=== PATIENT | male | born 1965 | race Caucasian/White ===

== ENCOUNTER → 2019-12-21 09:13 | Outpatient (BNVA) | payer OTHER, SELFPAY | PROVIDERS: PCP Internal Medicine; Referring Provider Internal Medicine; Visit Provider Internal Medicine Endocrinology, Diabetes & Metabolism | DX: Z76.89 Persons encountering health services in other specified circumstances (principal) ==

== ENCOUNTER → 2020-08-10 12:48 | Outpatient (BNVA) | payer OTHER, SELFPAY | PROVIDERS: PCP Internal Medicine; Visit Provider Internal Medicine Endocrinology, Diabetes & Metabolism | DX: E11.65 Type 2 diabetes mellitus with hyperglycemia (principal); E11.21 Type 2 diabetes mellitus with diabetic nephropathy; E55.9 Vitamin D deficiency, unspecified; E78.5 Hyperlipidemia, unspecified; Z79.4 Long term (current) use of insulin | CPT/HCPCS: 82947; 99212 ==

== ENCOUNTER 2020-11-10 09:11 | Outpatient (REF) | payer OTHER, SELFPAY ==
[2020-11-10 10:38] LABS: Alanine Aminotransferase 37 U/L (0-40); Albumin Level 4.7 g/dL (3.5-5.0); Alkaline Phosphatase 80 U/L (39-117); Anion Gap 17 (12-20); Aspartate Amino Transferase 31 U/L (5-37); Bilirubin Total 0.8 mg/dL (0.0-1.0); Blood Urea Nitrogen 18 mg/dL (9-16); Calcium 10.6 mg/dL (8.4-10.2); Carbon Dioxide 25 mmol/L (22-29); Chloride 100 mmol/L (96-108); Cholesterol 147 mg/dL; Estimated Glomerular Filt Rate > 60; Glucose Random 124 mg/dL (60-115); HDL Cholesterol 56 mg/dL; LDL Cholesterol Calculated 78 mg/dl; Potassium 4.9 mmol/L (3.3-5.1); Sodium 137 mmol/L (135-145); Total Protein 8.1 g/dL (6.5-8.0); Triglycerides 68 mg/dL
[2020-11-10 11:05] LABS: Creatinine Urine 75.74 mg/dL; Microalbum/Creatinine Ratio Ur 17.1 ug/mg cr
[2020-11-12 04:56] LABS: LDL Cholesterol Direct 78 mg/dL (<100)
== END 2020-11-10 09:12 | disposition home or self-care (01) ==
LOC: HO.10HDL 09:11
PROVIDERS: Visit Provider Internal Medicine Endocrinology, Diabetes & Metabolism
DX: E11.9 Type 2 diabetes mellitus without complications (principal)
CPT/HCPCS: 36415; 80053; 80061; 82043; 83721

== ENCOUNTER → 2020-11-24 13:13 | Outpatient (BNVA) | payer OTHER, SELFPAY | PROVIDERS: PCP Internal Medicine; Visit Provider Nurse Practitioner Gerontology | DX: E11.65 Type 2 diabetes mellitus with hyperglycemia (principal); E11.21 Type 2 diabetes mellitus with diabetic nephropathy; E78.5 Hyperlipidemia, unspecified; E55.9 Vitamin D deficiency, unspecified; Z79.4 Long term (current) use of insulin | CPT/HCPCS: 82947; 83036; 99212 ==

== ENCOUNTER → 2021-05-18 10:48 | Outpatient (BNVA) | payer OTHER, SELFPAY | PROVIDERS: PCP Internal Medicine; Visit Provider Nurse Practitioner Gerontology | DX: E11.65 Type 2 diabetes mellitus with hyperglycemia (principal); E11.21 Type 2 diabetes mellitus with diabetic nephropathy; E55.9 Vitamin D deficiency, unspecified; E78.5 Hyperlipidemia, unspecified; Z79.4 Long term (current) use of insulin | CPT/HCPCS: 82947; 83036; 99212 ==

== ENCOUNTER 2021-10-06 07:51 | Outpatient (REF) | payer OTHER, SELFPAY ==
[2021-10-06 08:42] LABS: Alanine Aminotransferase 26 U/L (0-40); Albumin Level 4.4 g/dL (3.5-5.0); Alkaline Phosphatase 70 U/L (39-117); Anion Gap 14 (12-20); Aspartate Amino Transferase 19 U/L (5-37); Bilirubin Total 0.6 mg/dL (0.0-1.0); Blood Urea Nitrogen 15 mg/dL (9-16); Calcium 9.5 mg/dL (8.4-10.2); Carbon Dioxide 26 mmol/L (22-29); Chloride 104 mmol/L (96-108); Cholesterol 142 mg/dL; Estimated Glomerular Filt Rate > 60; Glucose Random 149 mg/dL (60-115); HDL Cholesterol 56 mg/dL; LDL Cholesterol Calculated 71 mg/dl; Potassium 4.4 mmol/L (3.3-5.1); Sodium 140 mmol/L (135-145); Total Protein 7.5 g/dL (6.5-8.0); Triglycerides 76 mg/dL
[2021-10-06 08:53] LABS: Creatinine Urine 83.61 mg/dL; Microalbum/Creatinine Ratio Ur 16.7 ug/mg cr
[2021-10-06 09:05] LABS: Vitamin D 25-OH Total 51.7 ng/mL (>30)
== END 2021-10-06 07:52 | disposition home or self-care (01) ==
LOC: HO.LAB 07:51
PROVIDERS: PCP Internal Medicine; Visit Provider Internal Medicine
DX: Z00.00 Encounter for general adult medical examination without abnormal findings (principal); E78.5 Hyperlipidemia, unspecified; E11.9 Type 2 diabetes mellitus without complications; E55.9 Vitamin D deficiency, unspecified
CPT/HCPCS: 36415; 80053; 80061; 82043; 82306

== ENCOUNTER 2022-10-02 09:58 | Outpatient (AMB) | payer OTHER, SELFPAY ==
--- NOTE | 2022-10-02 10:07 | MHC.PC.OV ---
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 Accompanied by: Self / Same As Patient Allergies No Known Allergies Allergy (Verified 10/02/22 10:26) Medication List - Last Reconciled 10/02/22 by Leny Mauro MD acetaminophen 500 mg PO Q6H PRN 30 days BD Ligia 2nd Gen Pen Needle (pen needle, diabetic) 1 time a day NS blood sugar diagnostic As directed blood sugar diagnostic (OneTouch Verio test strips) As directed twice a day, fasting am and at bedtime blood-glucose meter (OneTouch Verio Meter) As directed twice aday cholecalciferol (vitamin D3) 25 mcg PO DAILY 90 days empagliflozin (Jardiance) 25 mg PO DAILY 90 days lancets (OneTouch Delica Lancets) 4 times a day lancets (OneTouch Delica Lancets) As directed twice a day Lantus Solostar U-100 Insulin (insulin glargine) 25 units (0.25 mL) subcut BEDTIME 30 days NS lisinopril 2.5 mg PO DAILY 90 days pravastatin 20 mg PO BEDTIME 90 days sitagliptin phos-metformin 50-1,000 mg ER (Janumet XR) 2 tabs PO DAILY 90 days Tobacco use date assessed: 10/02/22 Dental Screening Dental Screen Date: 10/02/22 Did you have a dental visit in the last 12 months?: Yes Did you have a dental problem in the last 6 months where you did not have access to dental care?: No Was dental information given to patient?: Patient has dentist HPI HPI Comments History of Present Illness Details This is a 57-year-old male with diabetes mellitus type 2 on long-term current use of insulin that comes for his physical exam. A1c goal is 7% and now A1cs elevated and I will increase Lantus. Last colonoscopy was 2019 and was normal. No chest pain or shortness of breath. Labs were ordered. LDL goal should be less than 70. Blood pressure within goal being less than 130/80. 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 Lumbar pain Vitamin D deficiency Surgical History Hx of colonoscopy Family History Father Hypertension Diabetes Mother Diabetes Social History Housing: House Alcohol intake: current Alcohol intake frequency: holidays/special occasions only Alcohol type: beer Patient Tobacco Use Status: Never used Tobacco e-Cigarette/Vaping Use: Never Used Second Hand Smoke Exposure: No service: No Current occupational status: employed Current occupational exposures/hazards: No Cognitive needs: No Hearing needs: No Vision needs: Yes Questionnaire PHQ-9 Over the last 2 weeks, how often have you been bothered by any of the following problems? 1. Little interest or pleasure in doing things: not at all 2. Feeling down, depressed, or hopeless: not at all 3. Trouble falling or staying asleep, or sleeping too much: not at all 4. Feeling tired or having little energy: not at all 5. Poor appetite or overeating: not at all 6. Feeling bad about yourself - or that you are a failure or have let yourself or your family down: not at all 7. Trouble concentrating on things, such as reading the newspaper or watching television: not at all 8. Moving or speaking so slowly that other people could have noticed. Or the opposite - being so fidgety or restless that you have been moving around a lot more than usual: not at all 9. Thoughts that you would be better off or of hurting yourself in some way: not at all Total score: 0 Depression Screening Interpretation: Negative 46823 - PHQ-9 Billing: Yes Source: Developed by Drs. Timmy Gregorio, Hailey Lemus, Mike Sebastian and colleagues, with an educational sylwia from [employer]. Thrive Questionnaire Date Thrive assessed: 10/02/22 I am a: Patient What is your living situation today?: I have a steady place to live Within the past 12 months, did the food you bought not last and you didn't have the money to get more?: Never true Within the past 12 months, did you worry whether your food would run out before you got money to buy more?: Never true Do you have trouble paying for medicines?: No Do you have trouble getting transportation to medical appointments?: No Do you have trouble paying your heating and electricity bill?: No Do you have trouble taking care of your child, family member or friend?: No Do you have trouble with day-to-day activities such as bathing, preparing meals, shopping, managing finances, etc.?: No Are you currently unemployed and looking for a job?: No Are you interested in more education?: No Please select the resources that you would like help with: None Currently or been in a relationship where the following occur: no concerns reported AUDIT C Alcohol Use Questionnaire (AUDIT-C) 1. How often do you have a drink containing alcohol?: Never Total Score: 0 Score Reviewed/Action Taken: No VALENTINA-7 AMB Questionnaire VALENTINA-7 Date VALENTINA - 7 assessed: 10/02/22 Feeling nervous, anxious, or on edge: 0 = Not at all Not being able to stop or control worryin = Not at all Worrying too much about different things: 0 = Not at all Trouble relaxin = Not at all Being so restless that it is hard to sit still: 0 = Not at all Becoming easily annoyed or irritable: 0 = Not at all Feeling afraid as if something awful might happen: 0 = Not at all Total VALENTINA-7 score (0-4 normal; 5-9 mild; 10-14 moderate; 15-21 severe): 0 Source: Developed by Drs. Timmy Gregorio, Hailey Lemus, Mike Sebastian and colleagues, with an educational sylwia from [employer]. VALENTINA-7 Assessment Billing VALENTINA-7 Assessment Tool: VALENTINA-7 Assessment 82745 Review of Systems Const All systems reviewed & are unremarkable except as noted in HPI and below Eyes Reports no additional complaints, Denies change in vision and Denies other visual disturbances Card Denies chest pain at rest, Denies chest pain with activity, Denies edema, Denies irregular heart rhythm, Denies claudication, Denies dyspnea, Denies dyspnea on exertion, Denies orthopnea, Denies paroxysmal nocturnal dyspnea and Denies slow heart rate Resp Denies cough, Denies dyspnea and Denies dyspnea on exertion GI Denies abdominal pain, Denies change in bowel habits, Denies excessive flatus, Denies nausea and Denies vomiting Denies urinary hesitancy, Denies urinary incontinence and Denies urinary urgency Musc Denies abnormal gait, Denies atrophy, Denies deformity and Denies limited range of motion Skin/Breast Denies bleeding lesions, Denies changing lesions and Denies rash Neuro Denies abnormal gait and Denies lack of coordination Physical exam (Primary Care) Vital Signs: Last Vital Signs BP 110/82 10/02/22 10:09 BMI result Body Mass Index 22.5 Tobacco/Smoking Status: Tobacco use Status Tobacco use date assessed 10/02/22 10/02/22 10:11 Patient Tobacco Use Status Never used Tobacco 10/02/22 10:11 e-Cigarette/Vaping Use Never Used 10/02/22 10:11 PHQ-9: PHQ-9 Score PHQ-9: Total score 0 10/02/22 10:11 Depression Screening Interpretation: Negative Thrive Assessment: Date of Thrive Assessment Date Thrive assessed 10/02/22 10/02/22 10:11 Currently or been in a relationship where the following occur: no concerns reported Const Orientation/consciousness: patient oriented x3 [facility] Head: Yes normal to inspection, Yes normocephalic and Yes atraumatic Ears: external ears normal Mouth: lip normal Eyes General: appearance normal, both eyes and all related structures Eyelids: Yes eyelids normal Conjunctivae: conjunctivae normal Neck Neck: Yes normal visual inspection and Yes supple Resp Effort & Inspection: normal respiratory effort Auscultation: clear to auscultation bilaterally Cardio Jugular venous distension: no JVD Rate: regular rate Rhythm: regular rhythm Heart sounds: S1 normal heart sound present and S2 normal heart sound present GI Inspection: Yes normal to inspection Palpation (GI): Soft to palpation and nontender Auscultation: normal bowel sounds Skin General skin exam: no rashes or lesions noted Neuro General: patient oriented x3 and no focal motor deficits Extrem General: Yes full ROM Psych Appearance: grossly normal Results AMB Hemoglobin A1c AMB Hemoglobin A1c 10.3 % Last Edit by AGUILAR Troy on 10/02/22 10:22 Results Reviewed Results Reviewed: Laboratory Last Values Hgb A1c (Clinic) 10.3 % (4.0-6.0) H 10/02/22 10:20 Assessment and Plan Assessment & Plan (1) Physical exam: Code(s): Z00.00 - Encounter for general adult medical examination without abnormal findings Plan: Repeat in a year. (2) Diabetes type 2, uncontrolled: Code(s): E11.65 - Type 2 diabetes mellitus with hyperglycemia Qualifiers: Glycemic state: with hyperglycemia Qualified Code(s): E11.65 - Type 2 diabetes mellitus with hyperglycemia Plan: Increase Lantus from 25 units to 28 units once a day. A1c goal is equal or less than 7%. Orders: Orders Comprehensive [place]. Panel Fast Today E11.9 - Type 2 diabetes mellitus without complications Lipid Panel Today E78.5 - Hyperlipidemia, unspecified Vitamin D 25-OH Total Today E55.9 - Vitamin D deficiency, unspecified Microalbumin, Random (w Creat) Today E11.9 - Type 2 diabetes mellitus without complications AMB Hemoglobin A1c Today E11.9 - Type 2 diabetes mellitus without complications Medications: Changed From Lantus Solostar U-100 Insulin (insulin glargine) 25 units (0.25 mL) subcut BEDTIME 30 days 7.5 mL 8RF NS E11.65 - Type 2 diabetes mellitus with hyperglycemia To Lantus Solostar U-100 Insulin (insulin glargine) 28 units (0.28 mL) subcut BEDTIME 30 days 8.4 mL 8RF NS E11.65 - Type 2 diabetes mellitus with hyperglycemia Coding Level of Care Code Est Pt Prev Care 40-64y(03211) Diagnoses Physical exam Z00.00 Diabetes type 2, uncontrolled E11.65 Glycemic state: with hyperglycemia Additional Codes VALENTINA-7 Assessment Billing - VALENTINA-7 Assessment Tool: VALENTINA-7 Assessment 29974 ([id number]) Time Spent (min) 33
[2022-10-02 10:09] VITALS: BP 110/82; BMI 22.5
== END 2022-10-02 10:38 | disposition home or self-care (01) ==
PROVIDERS: Visit Provider Internal Medicine
DX: Z00.00 Encounter for general adult medical examination without abnormal findings (principal); E11.65 Type 2 diabetes mellitus with hyperglycemia; E11.9 Type 2 diabetes mellitus without complications
CPT/HCPCS: 83036; 99396

== ENCOUNTER 2024-07-08 09:49 | Outpatient (AMB) | payer OTHER, SELFPAY ==
--- NOTE | 2024-07-08 10:04 | MHC.PC.OV ---
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: No Accompanied by: Self / Same As Patient Allergies No Known Allergies Allergy (Verified 07/08/24 10:28) Medication List - Last Reconciled 07/08/24 by Leny Mauro MD BD Ligia 2nd Gen Pen Needle (pen needle, diabetic) 1 time a day NS blood sugar diagnostic As directed blood sugar diagnostic (OneTouch Verio test strips) As directed twice a day, fasting am and at bedtime blood-glucose meter (OneTouch Verio Meter) As directed twice aday empagliflozin (Jardiance) 25 mg PO DAILY 90 days lancets (OneTouch Delica Lancets) 4 times a day lancets (OneTouch Delica Lancets) As directed twice a day Lantus Solostar U-100 Insulin (insulin glargine) 28 units (0.28 mL) subcut BEDTIME 30 days NS lisinopril 2.5 mg PO DAILY 90 days pravastatin 20 mg PO BEDTIME 90 days sitagliptin phos-metformin 50-1,000 mg ER (Janumet XR) 2 tabs PO DAILY 90 days Tobacco use date assessed: 07/08/24 Dental Screening Dental Screen Date: 07/08/24 Did you have a dental visit in the last 12 months?: Yes Did you have a dental problem in the last 6 months where you did not have access to dental care?: No Was dental information given to patient?: Patient has dentist HPI HPI Comments History of Present Illness Details The patient is a 59-year-old male presenting with uncontrolled diabetes mellitus. His A1c is significantly elevated at 14%, indicating poor control. He is currently on a diabetes management regimen that includes Jardiance 25 mg, Janumet two tablets daily, and Lantus 28 units. The patient also has a history of hypertension managed with Lisinopril 2.5 mg and hyperlipidemia treated with Pravastatin 20 mg. He reported no medication allergies and has recently undergone an eye examination. The current visit focused on reevaluating his diabetes management and enhancing home glucose monitoring practices. Also has history of low vitamin-D on supplements. [facility] Medical History Lumbar pain Essential hypertension Hypovitaminosis D Diabetes mellitus type 2 in nonobese Diabetes type 2, uncontrolled Diabetic nephropathy associated with type 2 diabetes mellitus Dyslipidemia half-way (current) use of insulin Vitamin D deficiency Diabetes type 2, controlled Surgical History Hx of colonoscopy Family History Father Hypertension Diabetes Mother Diabetes Social History Housing: House Alcohol intake: current Alcohol intake frequency: holidays/special occasions only Alcohol type: beer Patient Tobacco Use Status: Never used Tobacco e-Cigarette/Vaping Use: Never Used Second Hand Smoke Exposure: No service: No Current occupational status: employed Current occupational exposures/hazards: No Cognitive needs: No Hearing needs: No Vision needs: Yes Questionnaire PHQ-9 Over the last 2 weeks, how often have you been bothered by any of the following problems? 1. Little interest or pleasure in doing things: several days 2. Feeling down, depressed, or hopeless: not at all 3. Trouble falling or staying asleep, or sleeping too much: not at all 4. Feeling tired or having little energy: not at all 5. Poor appetite or overeating: not at all 6. Feeling bad about yourself - or that you are a failure or have let yourself or your family down: not at all 7. Trouble concentrating on things, such as reading the newspaper or watching television: not at all 8. Moving or speaking so slowly that other people could have noticed. Or the opposite - being so fidgety or restless that you have been moving around a lot more than usual: not at all 9. Thoughts that you would be better off or of hurting yourself in some way: not at all Total score: 1 Depression Screening Interpretation: Negative Depression Screening Done: Yes 74062 - PHQ-9 Billing: Yes Source: Developed by Drs. Timmy Gregorio, Hailey Lemus, Mike Sebastian and colleagues, with an educational sylwia from [email or web address]. Thrive Questionnaire Date Thrive assessed: 07/08/24 I am a: Patient What is your living situation today?: I have a steady place to live Within the past 12 months, did the food you bought not last and you didn't have the money to get more?: I choose not to answer this question Within the past 12 months, did you worry whether your food would run out before you got money to buy more?: Never true Do you have trouble paying for medicines?: No Do you have trouble getting transportation to medical appointments?: No Do you have trouble paying your heating and electricity bill?: No Do you have trouble taking care of your child, family member or friend?: No Do you have trouble with day-to-day activities such as bathing, preparing meals, shopping, managing finances, etc.?: No Are you currently unemployed and looking for a job?: No Are you interested in more education?: No Please select the resources that you would like help with: None Currently or been in a relationship where the following occur: No concerns reported THRIVE Score: 0 AUDIT C Alcohol Use Questionnaire (AUDIT-C) 1. How often do you have a drink containing alcohol?: Monthly or less 2. How many drinks containing alcohol do you have on a typical day when you are drinking?: 1 or 2 3. How often do you have six or more drinks on one occasion?: Never Total Score: 1 VALENTINA-7 AMB Questionnaire VALENTINA-7 Date VALENTINA - 7 assessed: 07/08/24 Feeling nervous, anxious, or on edge: 0 = Not at all Not being able to stop or control worryin = Not at all Worrying too much about different things: 0 = Not at all Trouble relaxin = Not at all Being so restless that it is hard to sit still: 0 = Not at all Becoming easily annoyed or irritable: 0 = Not at all Feeling afraid as if something awful might happen: 0 = Not at all Total VALENTINA-7 score (0-4 normal; 5-9 mild; 10-14 moderate; 15-21 severe): 0 Source: Developed by Drs. Timmy Gregorio, Hailey Lemus, Mike Sebastian and colleagues, with an educational sylwia from [email or web address]. VALENTINA-7 Assessment Billing VALENTINA-7 Assessment Tool: VALENTINA-7 Assessment 11320 Review of Systems Const All systems reviewed & are unremarkable except as noted in HPI and below Card Denies chest pain at rest, Denies chest pain with activity, Denies edema, Denies irregular heart rhythm, Denies claudication, Denies dyspnea, Denies dyspnea on exertion, Denies orthopnea, Denies paroxysmal nocturnal dyspnea and Denies slow heart rate Resp Denies cough, Denies dyspnea and Denies dyspnea on exertion GI Denies abdominal pain, Denies change in bowel habits, Denies excessive flatus, Denies nausea and Denies vomiting Denies urinary hesitancy, Denies urinary incontinence and Denies urinary urgency Physical exam (Primary Care) Vital Signs: Last Vital Signs BP 112/80 07/08/24 10:05 BMI result Body Mass Index 20.7 Tobacco/Smoking Status: Tobacco use Status Tobacco use date assessed 07/08/24 07/08/24 10:12 Patient Tobacco Use Status Never used Tobacco 07/08/24 10:05 e-Cigarette/Vaping Use Never Used 07/08/24 10:05 PHQ-9: PHQ-9 Score PHQ-9: Total score 1 07/08/24 10:29 Depression Screening Interpretation: Negative Thrive Assessment: Date of Thrive Assessment Date Thrive assessed 07/08/24 07/08/24 10:05 Currently or been in a relationship where the following occur: No concerns reported Resp Effort & Inspection: normal respiratory effort Auscultation: clear to auscultation bilaterally Cardio Jugular venous distension: no JVD Rate: regular rate Rhythm: regular rhythm Heart sounds: S1 normal heart sound present and S2 normal heart sound present Extrem General: Yes full ROM Results AMB Hemoglobin A1c AMB Hemoglobin A1c 14.0 % Last Edit by AGUILAR Troy on 07/08/24 10:18 Results Reviewed Results Reviewed: Laboratory Last Values Hgb A1c (Clinic) 14.0 % (4.0-6.0) H 07/08/24 10:04 Coding Level of Care Code Est Pt Level 4 (75366) Complex EM visit Add On G2211 Diagnoses Uncontrolled type 2 diabetes mellitus with hyperglycemia E11.65 Glycemic state: with hyperglycemia Essential hypertension I10 Dyslipidemia E78.5 Vitamin D deficiency E55.9 Additional Codes VALENTINA-7 Assessment Billing - VALENTINA-7 Assessment Tool: VALENTINA-7 Assessment 39242 ([id number]) PHQ-9 - 34193 - PHQ-9 Billing: Yes ([id number]) Time Spent (min) 23 Assessment & Plan Assessment & Plan (1) Diabetes type 2, uncontrolled: Code(s): E11.65 - Type 2 diabetes mellitus with hyperglycemia Category: Medical Qualifiers: Glycemic state: with hyperglycemia Qualified Code(s): E11.65 - Type 2 diabetes mellitus with hyperglycemia (2) Essential hypertension: Code(s): I10 - Essential (primary) hypertension Category: Medical (3) Dyslipidemia: Code(s): E78.5 - Hyperlipidemia, unspecified Category: Medical (4) Vitamin D deficiency: Code(s): E55.9 - Vitamin D deficiency, unspecified Category: Medical Plan The visit focused on addressing the patient's uncontrolled Type 2 Diabetes Mellitus, with an A1c of 14%. The patient will continue his current regimen of Jardiance, Janumet, and Lantus, with enhanced home glucose monitoring using a glucometer and test strips. Lisinopril and Pravastatin will be continued for hypertension and hyperlipidemia, respectively. Emphasis was placed on medication adherence, and follow-up is planned to reassess his condition and adjust treatment as needed. Recent eye examination results will be considered in ongoing management. Patient was informed and verbally consented to the use of an ambient scribe for clinic note documentation during this visit. During the visit, I reviewed the implications of the patient's uncontrolled diabetes, with an A1c of 14%, and discussed the current management plan. We agreed to continue the current medications, including Jardiance, Janumet, and Lantus, while enhancing home glucose monitoring with a glucometer and test strips. I clarified that adherence to the medication regimen is crucial for improving glycemic control. The patient was informed of the risks associated with poor glucose control, including potential complications such as retinopathy, neuropathy, and nephropathy. We discussed the use of Lisinopril for hypertension and Pravastatin for hyperlipidemia management. I recommended follow-up visits to reassess and modify the treatment plan as needed. The patient recently had an eye examination, which will be considered in ongoing diabetes management. Orders: Orders AMB Hemoglobin A1c Today E11.65 - Type 2 diabetes mellitus with hyperglycemia Lipid Panel Today E78.5 - Hyperlipidemia, unspecified Microalbumin, Random (w Creat) Today R80.9 - Proteinuria, unspecified Comprehensive [place]. Panel Fast Today E11.65 - Type 2 diabetes mellitus with hyperglycemia Medications: New pen needle, diabetic (1st Tier Unifine Pentips) Use 1 pen needle once a day 50 ea 6RF E11.65 - Type 2 diabetes mellitus with hyperglycemia Changed From blood-glucose meter (OneTouch Verio Meter) As directed twice aday 1 ea 0RF E11.65 - Type 2 diabetes mellitus with hyperglycemia To blood-glucose meter As directed twice aday 1 ea 0RF E11.65 - Type 2 diabetes mellitus with hyperglycemia From lancets (OneTouch Delica Lancets) As directed twice a day 100 ea 6RF E11.65 - Type 2 diabetes mellitus with hyperglycemia, E11.9 - Type 2 diabetes mellitus without complications To lancets As directed twice a day 100 ea 6RF E11.65 - Type 2 diabetes mellitus with hyperglycemia, E11.9 - Type 2 diabetes mellitus without complications Refilled empagliflozin (Jardiance) 25 mg PO DAILY 90 tabs 1RF 90 days E11.9 - Type 2 diabetes mellitus without complications Lantus Solostar U-100 Insulin (insulin glargine) 28 units (0.28 mL) subcut BEDTIME 8.4 mL 8RF 30 days NS E11.65 - Type 2 diabetes mellitus with hyperglycemia sitagliptin phos-metformin 50-1,000 mg ER (Janumet XR) 2 tabs PO DAILY 180 tabs 0RF 90 days E11.9 - Type 2 diabetes mellitus without complications blood sugar diagnostic (OneTouch Verio test strips) As directed twice a day, fasting am and at bedtime 50 ea 11RF E11.65 - Type 2 diabetes mellitus with hyperglycemia, E11.9 - Type 2 diabetes mellitus without complications lisinopril 2.5 mg PO DAILY 90 tabs 1RF 90 days E11.9 - Type 2 diabetes mellitus without complications pravastatin 20 mg PO BEDTIME 90 tabs 1RF 90 days E11.9 - Type 2 diabetes mellitus without complications Discontinued BD Ligia 2nd Gen Pen Needle (pen needle, diabetic) Discontinued Reason: Patient Completed Course 1 time a day 100 ea 4RF NS E11.65 - Type 2 diabetes mellitus with hyperglycemia Patient Instructions: - Continue taking Jardiance, Janumet, and Lantus as prescribed. - Use the glucometer and test strips to check blood sugar levels regularly. - Take Lisinopril and Pravastatin as directed for blood pressure and cholesterol. - Follow up with me in a few months to check on your blood sugar levels. - Let me know if you experience any new symptoms or have concerns about your medications.
[2024-07-08 10:05] VITALS: BP 112/80; BMI 20.7
== END 2024-07-08 10:36 | disposition home or self-care (01) ==
LOC: HO.HMCH 09:50
PROVIDERS: PCP Internal Medicine; Visit Provider Internal Medicine
DX: E11.65 Type 2 diabetes mellitus with hyperglycemia (principal); I10 Essential (primary) hypertension; E78.5 Hyperlipidemia, unspecified; E55.9 Vitamin D deficiency, unspecified

== ENCOUNTER → 2024-07-08 09:49 | Outpatient (BNVA) | payer OTHER, SELFPAY | PROVIDERS: PCP Internal Medicine; Visit Provider Internal Medicine | DX: E11.65 Type 2 diabetes mellitus with hyperglycemia (principal); I10 Essential (primary) hypertension; E78.5 Hyperlipidemia, unspecified; E55.9 Vitamin D deficiency, unspecified; Z79.4 Long term (current) use of insulin; Z79.899 Other long term (current) drug therapy | CPT/HCPCS: 83036; 96127; 99212 ==

== ENCOUNTER 2024-11-02 12:25 | Outpatient (REF) | payer OTHER, SELFPAY ==
--- NOTE | ~2024-11-02 | XR_ITS ---
EXAMINATION: XR FEMUR, LEFT CLINICAL INFORMATION: S76.319A - Strain of muscle, fascia and tendon of the posterior muscle g... COMPARISON: None TECHNIQUE: AP and lateral views of the left femur were obtained. FINDINGS: Marginal osteophytes are present along the acetabular roof. The left hip joint is otherwise unremarkable. The left knee joint is grossly normal. No femoral abnormality is identified. There are large patellar enthesophytes. XR/XR femur LT 2V IMPRESSION: Unremarkable left femur. There are large patellar enthesophytes of uncertain significance. There are osteophytes involving the acetabular roof in the left hip. Electronically signed by: Corby Hines MD 11/02/2024 01:55 PM EDT
== END 2024-11-02 12:26 | disposition home or self-care (01) ==
LOC: HO.XRAY 12:25
PROVIDERS: PCP Internal Medicine; Visit Provider Internal Medicine
DX: S76.319A Strain of muscle, fascia and tendon of the posterior muscle group at thigh level, unspecified thigh, initial encounter (principal); Z79.4 Long term (current) use of insulin; Z79.84 Long term (current) use of oral hypoglycemic drugs; Z79.899 Other long term (current) drug therapy
CPT/HCPCS: 73552

== ENCOUNTER 2024-11-02 12:25 | Outpatient (AMB) | payer OTHER, SELFPAY ==
--- NOTE | 2024-11-02 12:35 | MHC.PC.OV ---
Vital Signs 11/02/24 12:37 Height 6 ft Weight 151 lb 8 oz BMI 20.5 BP 142/66 H Blood Pressure Location Rt brachial Position Sitting Pulse 109 H Pulse Source Pulse Oximeter Temp 97.3 F Temp Source Temporal Artery Scan Pulse Oximetry (%) 95 Oxygen Delivery Method Room Air Intake Visit Reasons: sciatica pain Intake Note: Patient is here to follow up on Sciatica pain. Senior Database Programmer Required: No Outside Machinist Supervisor: Not Required per policy Accompanied by: Self / Same As Patient Allergies No Known Allergies Allergy (Verified 11/02/24 12:37) Medication List - Last Reconciled 11/02/24 by Beau Sen MD blood sugar diagnostic As directed blood sugar diagnostic (LiquiGlideTouch Verio test strips) As directed twice a day, fasting am and at bedtime blood-glucose meter As directed twice aday empagliflozin (Jardiance) 25 mg PO DAILY 90 days lancets (OneTouch Delica Lancets) 4 times a day lancets As directed twice a day Lantus Solostar U-100 Insulin (insulin glargine) 28 units (0.28 mL) subcut BEDTIME 30 days NS lisinopril 2.5 mg PO DAILY 90 days metformin ER 1,000 mg (2 x 500 mg) PO BID 90 days pen needle, diabetic (1st Tier Unifine Pentips) Use 1 pen needle once a day pravastatin 20 mg PO BEDTIME 90 days Tobacco use date assessed: 11/02/24 Dental Screening Dental Screen Date: 07/08/24 HPI HPI Comments History of Present Illness Details The patient is a 59-year-old male presenting with posterior left thigh pain. The pain began two to three weeks ago without any specific injury or event. The pain is described as starting from the back and radiating upwards and to his leg. He has not taken any medication for the pain and reports fever and chills, especially at night. [facility] Medical History Lumbar pain Essential hypertension Hypovitaminosis D Diabetes mellitus type 2 in nonobese Diabetes type 2, uncontrolled Diabetic nephropathy associated with type 2 diabetes mellitus Dyslipidemia detention (current) use of insulin Vitamin D deficiency Diabetes type 2, controlled Surgical History Hx of colonoscopy Family History Father Hypertension Diabetes Mother Diabetes Social History Housing: House Alcohol intake: current Alcohol intake frequency: holidays/special occasions only Alcohol type: beer Patient Tobacco Use Status: Never used Tobacco e-Cigarette/Vaping Use: Never Used Second Hand Smoke Exposure: No service: No Current occupational status: employed Current occupational exposures/hazards: No Cognitive needs: No Hearing needs: No Vision needs: Yes Questionnaire Thrive Questionnaire Date Thrive assessed: 07/08/24 I am a: Patient What is your living situation today?: I have a steady place to live Within the past 12 months, did the food you bought not last and you didn't have the money to get more?: I choose not to answer this question Within the past 12 months, did you worry whether your food would run out before you got money to buy more?: Never true Do you have trouble paying for medicines?: No Do you have trouble getting transportation to medical appointments?: No Do you have trouble paying your heating and electricity bill?: No Do you have trouble taking care of your child, family member or friend?: No Do you have trouble with day-to-day activities such as bathing, preparing meals, shopping, managing finances, etc.?: No Are you currently unemployed and looking for a job?: No Are you interested in more education?: No Please select the resources that you would like help with: None Currently or been in a relationship where the following occur: No concerns reported THRIVE Score: 0 VALENTINA-7 AMB Questionnaire VALENTINA-7 Date VALENTINA - 7 assessed: 07/08/24 Source: Developed by Drs. Timmy Gregorio, Hailey Lemus, Mike Sebastian and colleagues, with an educational sylwia from [employer]. Review of Systems Const Details: Positives besides what was mentioned in HPI are in BOLD Constitutional: No Weight Change, No Fever, No Chills, No Night Sweats, No Fatigue, No Malaise ENT/Mouth: No Hearing Changes, No Ear Pain, No Nasal Congestion, No Sinus Pain, No Hoarseness, No sore throat, No Rhinorrhea, No Swallowing Difficulty Eyes: No Eye Pain, No Swelling, No Redness, No Foreign Body, No Discharge, No Vision Changes Cardiovascular: No Chest Pain, No SOB, No PND, No Dyspnea on Exertion, No Orthopnea, No Claudication, No Edema, No Palpitations Respiratory: No Cough, No Sputum, No Wheezing, No Smoke Exposure, No Dyspnea Gastrointestinal: No Nausea, No Vomiting, No Diarrhea, No Constipation, No Pain, No Heartburn, No Anorexia, No Dysphagia, No Hematochezia, No Melena, No Flatulence, No Jaundice Genitourinary: No Dysmenorrhea, No DUB, No Dyspareunia, No Dysuria, No Urinary Frequency, No Hematuria, No Urinary Incontinence, No Urgency, No Flank Pain, No Urinary Flow Changes, No Hesitancy Musculoskeletal: No Arthralgias, No Myalgias, No Joint Swelling, No Joint Stiffness, No Back Pain, No Neck Pain, No Injury History Skin: No Skin Lesions, No Pruritis, No Hair Changes, No Breast/Skin Changes, No Nipple Discharge Neuro: No Weakness, No Numbness, No Paresthesias, No Loss of Consciousness, No Syncope, No Dizziness, No Headache, No Coordination Changes, No Recent Falls Psych: No Anxiety/Panic, No Depression, No Insomnia, No Personality Changes, No Delusions, No Rumination, No SI/HI/AH/VH, No Social Issues, No Memory Changes, No Violence/Abuse Hx., No Eating Concerns Heme/Lymph: No Bruising, No Bleeding, No Transfusions History, No Lymphadenopathy Endocrine: No Polyuria, No Polydipsia, No Temperature Intolerance Physical exam (Primary Care) Vital Signs: Last Vital Signs Temp 97.3 F 11/02/24 12:37 Pulse 109 H 11/02/24 12:37 BP 142/66 H 11/02/24 12:37 Pulse Ox 95 11/02/24 12:37 Oxygen Delivery Method Room Air 11/02/24 12:37 BMI result Body Mass Index 20.5 Tobacco/Smoking Status: Tobacco use Status Tobacco use date assessed 11/02/24 11/02/24 12:44 Patient Tobacco Use Status Never used Tobacco 11/02/24 12:35 e-Cigarette/Vaping Use Never Used 11/02/24 12:35 Thrive Assessment: Date of Thrive Assessment Date Thrive assessed 07/08/24 11/02/24 12:35 Currently or been in a relationship where the following occur: No concerns reported Const Other: Pertinent findings are in BOLD GENERAL APPEARANCE NAD, activity normal for age, well developed/ well nourished, no cyanosis, pallor, or diaphoresis. EYES lids/conjunctiva normal. EARS/NOSE/THROAT Mucous membranes moist, nares normal, lips/teeth normal uvula midline without oral pharyngeal erythema, exudate or swelling TMs normal bilaterally. No lymphangitis/lymphedema. HEAD/NECK normocephalic atraumatic, no facial trauma, neck is supple. RESPIRATORY respiratory effort normal, speaks in full sentences, no tripod position, no accessory muscle use. Lungs clear to auscultation without rhonchi, wheezes, rales CARDIAC Regular rate and rhythm, no edema. ABDOMINAL Soft, ND/NT. No evidence of fluid wave. No pulsatile masses on exam, rebound tenderness, Wheeler sign or pain over Mcburney's point. MUSCLES/EXTREMITIES No abnormal range of motion, no swelling. Left posterior thigh lump. SKIN Warm, pink and dry. No rashes, dermatoses, petechiae or lesions. NEUROLOGICAL Speech is clear and appropriate. Normal level of consciousness. Gait and coordination are normal. 5/5 strength in all extremities. PSYCH Normal mood and affect. Judgement/competence is appropriate Results AMB Hemoglobin A1c AMB Hemoglobin A1c 11.9 % Last Edit by AGUILAR Galaviz on 11/02/24 12:51 Results Reviewed Results Reviewed: Laboratory Last Values Hgb A1c (Clinic) 11.9 % (4.0-6.0) H 11/02/24 12:35 Coding Level of Care Code Est Pt Level 3 (66890) Diagnoses Hamstring muscle strain S76.319A Assessment & Plan Assessment & Plan (1) Hamstring muscle strain: Code(s): S76.319A - Strain of muscle, fascia and tendon of the posterior muscle group at thigh level, unspecified thigh, initial encounter Category: Medical Plan: Unsure about diagnosis. Most likely muscle strain. On PE there is a lump in the posterior thigh. CT femur and X ray of left thigh to rule out soft tssue tumor. Tylenol and Diclofenac gel. F-U with Dr. Leyva on 11/10. Plan I discussed with the patient the use of Tylenol for managing his back pain and the application of a topical treatment to the affected area as needed. 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 XR femur LT 2V Today S76.319A - Strain of muscle, fascia and tendon of the posterior muscle group at thigh level, unspecified thigh, initial encounter Medications: New acetaminophen (Tylenol Extra Strength) 500 mg PO Q6H PRN 30 tabs 2RF fever diclofenac sodium 1% (Voltaren Arthritis Pain) apply to single elbow, wrist or hand; for hand includes palm/fingers/back of hand 2 grams topical QID PRN 50 grams 1RF pain Discontinued sitagliptin phos-metformin 50-1,000 mg ER (Janumet XR) Discontinued Reason: Patient no longer taking 2 tabs PO DAILY 90 days 180 tabs 0RF E11.9 - Type 2 diabetes mellitus without complications
[2024-11-02 12:37] VITALS: BP 142/66; PULSE 109; TEMP 36.3; O2SAT 95; BMI 20.5
== END 2024-11-02 13:00 | disposition home or self-care (01) ==
LOC: HO.HMCH 12:26
PROVIDERS: PCP Internal Medicine; Visit Provider Internal Medicine
DX: E11.9 Type 2 diabetes mellitus without complications (principal); Z79.4 Long term (current) use of insulin; S76.319A Strain of muscle, fascia and tendon of the posterior muscle group at thigh level, unspecified thigh, initial encounter

== ENCOUNTER → 2024-11-02 13:14 | Outpatient (BNV) | payer OTHER, SELFPAY | PROVIDERS: PCP Internal Medicine; Visit Provider Radiology Diagnostic Radiology | DX: M79.605 Pain in left leg (principal) | CPT/HCPCS: 73552 ==

== ENCOUNTER 2024-11-10 10:20 | Outpatient (AMB) | payer OTHER, SELFPAY ==
--- NOTE | 2024-11-10 10:27 | A.OFFPC_ITS ---
Vital Signs 11/10/24 10:28 Height 6 ft Weight 148 lb 8 oz BMI 20.1 BP 116/70 Blood Pressure Location Lt brachial Position Sitting Respiration 18 Pulse 93 Pulse Source Pulse Oximeter Temp 97.1 F Temp Source Temporal Artery Scan Pulse Oximetry (%) 96 Oxygen Delivery Method Room Air Intake Visit Reasons: dm Bariatric Nurse Required: No Accompanied by: Self / Same As Patient Allergies No Known Allergies Allergy (Verified 11/10/24 10:54) Medication List - Last Reconciled 11/10/24 by Leny Mauro MD acetaminophen (Tylenol Extra Strength) 500 mg PO Q6H PRN blood sugar diagnostic As directed blood sugar diagnostic (OneTouch Verio test strips) As directed twice a day, fasting am and at bedtime blood-glucose meter As directed twice aday diclofenac sodium 1% (Voltaren Arthritis Pain) 2 grams topical QID PRN empagliflozin (Jardiance) 25 mg PO DAILY 90 days lancets (OneTouch Delica Lancets) 4 times a day lancets As directed twice a day Lantus Solostar U-100 Insulin (insulin glargine) 28 units (0.28 mL) subcut BEDTIME 30 days NS lisinopril 2.5 mg PO DAILY 90 days metformin ER 1,000 mg (2 x 500 mg) PO BID 90 days pen needle, diabetic (1st Tier Unifine Pentips) Use 1 pen needle once a day pravastatin 20 mg PO BEDTIME 90 days Tobacco use date assessed: 11/10/24 Dental Screening Dental Screen Date: 11/10/24 Did you have a dental visit in the last 12 months?: No Did you have a dental problem in the last 6 months where you did not have access to dental care?: No Was dental information given to patient?: No HPI HPI Comments History of Present Illness Details The patient is a 59-year-old male presenting with a follow-up for diabetes management and left hip pain that radiates to leg. The patient's diabetes mellitus has been poorly controlled, with the most recent hemoglobin A1c recorded at 11.9% on November 02, down from a previous level of 14%. The patient is currently on Jardiance 25 mg, Metformin 1000 mg twice daily, and Lantus 28 units. There is a concern about medication adherence as the patient has not completed recent laboratory tests, and home glucose readings are reportedly poor. The patient also has a history of hypertension, which is currently well- controlled with a blood pressure of 116/70 mmHg. The patient is on Lisinopril 2.5 mg and Pravastatin 20 mg for cholesterol management. The patient reports left hip pain, which was evaluated by Dr. Cosme Milligan on November 02, revealing osteoarthritis and cartilage involvement on imaging. The pain has persisted for about a month, and the patient denies any recent trauma or falls. The pain is primarily localized to the hip but occasionally radiates to the lower extremity. 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 Vitamin D deficiency Diabetes type 2, controlled Surgical History Hx of colonoscopy Family History Father Hypertension Diabetes Mother Diabetes Social History Housing: House Alcohol intake: current Alcohol intake frequency: holidays/special occasions only Alcohol type: beer Patient Tobacco Use Status: Never used Tobacco e-Cigarette/Vaping Use: Never Used Second Hand Smoke Exposure: No service: No Current occupational status: employed Current occupational exposures/hazards: No Cognitive needs: No Hearing needs: No Vision needs: Yes Questionnaire Thrive Questionnaire Date Thrive assessed: 07/08/24 I am a: Patient What is your living situation today?: I have a steady place to live Within the past 12 months, did the food you bought not last and you didn't have the money to get more?: I choose not to answer this question Within the past 12 months, did you worry whether your food would run out before you got money to buy more?: Never true Do you have trouble paying for medicines?: No Do you have trouble getting transportation to medical appointments?: No Do you have trouble paying your heating and electricity bill?: No Do you have trouble taking care of your child, family member or friend?: No Do you have trouble with day-to-day activities such as bathing, preparing meals, shopping, managing finances, etc.?: No Are you currently unemployed and looking for a job?: No Are you interested in more education?: No Please select the resources that you would like help with: None Currently or been in a relationship where the following occur: No concerns reported THRIVE Score: 0 VALENTINA-7 AMB Questionnaire VALENTINA-7 Date VALENTINA - 7 assessed: 07/08/24 Source: Developed by Drs. Timmy Gregorio, Hailey Lemus, Mike Sebastian and colleagues, with an educational sylwia from [employer]. Review of Systems Const All systems reviewed & are unremarkable except as noted in HPI and below Card Denies chest pain at rest, Denies chest pain with activity, Denies edema, Denies irregular heart rhythm, Denies claudication, Denies dyspnea, Denies dyspnea on exertion, Denies orthopnea, Denies paroxysmal nocturnal dyspnea and Denies slow heart rate Resp Denies cough, Denies dyspnea and Denies dyspnea on exertion Physical exam (Primary Care) Vital Signs: Last Vital Signs Temp 97.1 F 11/10/24 10:28 Pulse 93 11/10/24 10:28 Resp 18 11/10/24 10:28 BP 116/70 11/10/24 10:28 Pulse Ox 96 11/10/24 10:28 Oxygen Delivery Method Room Air 11/10/24 10:28 BMI result Body Mass Index 20.1 Tobacco/Smoking Status: Tobacco use Status Tobacco use date assessed 11/10/24 11/10/24 10:33 Patient Tobacco Use Status Never used Tobacco 11/10/24 10:33 e-Cigarette/Vaping Use Never Used 11/10/24 10:33 Thrive Assessment: Date of Thrive Assessment Date Thrive assessed 07/08/24 11/10/24 10:33 Currently or been in a relationship where the following occur: No concerns reported Resp Effort & Inspection: normal respiratory effort Auscultation: clear to auscultation bilaterally Cardio Jugular venous distension: no JVD Rate: regular rate Rhythm: regular rhythm Heart sounds: S1 normal heart sound present and S2 normal heart sound present Extrem General: Yes full ROM Coding Level of Care Code Est Pt Level 4 (48097) Complex EM visit Add On G2211 Diagnoses Essential hypertension I10 Dyslipidemia E78.5 Uncontrolled type 2 diabetes mellitus with hyperglycemia E11.65 Glycemic state: with hyperglycemia Lumbar pain M54.50 Left leg pain M79.605 Time Spent (min) 21 Assessment & Plan Assessment & Plan (1) Essential hypertension: Code(s): I10 - Essential (primary) hypertension Category: Medical (2) Dyslipidemia: Code(s): E78.5 - Hyperlipidemia, unspecified Category: Medical (3) Diabetes type 2, uncontrolled: Code(s): E11.65 - Type 2 diabetes mellitus with hyperglycemia Category: Medical Qualifiers: Glycemic state: with hyperglycemia Qualified Code(s): E11.65 - Type 2 diabetes mellitus with hyperglycemia (4) Lumbar pain: Code(s): M54.50 - Low back pain, unspecified Category: Medical (5) Left leg pain: Code(s): M79.605 - Pain in left leg Category: Medical Plan Plan Patient was informed and verbally consented to the use of an ambient scribe for clinic note documentation during this visit. 1. Diabetes Mellitus The patient's diabetes management plan includes continuing current medications: Jardiance 25 mg, Metformin 1000 mg twice daily, and Lantus 28 units. The patient is advised to complete pending laboratory tests to better assess glycemic control and potential renal function issues. Referral to a certified diabetes educator or children's court magistrate may be considered if glycemic control does not improve. 2. Hypertension The patient's hypertension is currently well-controlled with Lisinopril 2.5 mg. Continued monitoring of blood pressure is recommended to ensure it remains within target range. 3. Osteoarthritis Of The Left Hip The patient is advised to continue using Tylenol for pain management, as st ronger analgesics cannot be prescribed without recent laboratory results. An ultrasound of the left leg is planned to further evaluate the pain and rule out other conditions. Referral to pain management is suggested for additional therapeutic options. Orders: Orders Lipid Panel Today E78.5 - Hyperlipidemia, unspecified Complete Blood Count Auto Diff Today D64.9 - Anemia, unspecified Comprehensive [place]. Panel Fast Today E11.65 - Type 2 diabetes mellitus with hyperglycemia XR lumbar spine 2-3V Today M54.50 - Low back pain, unspecified US venous duplex LE LT Today M79.605 - Pain in left leg Microalbumin, Random (w Creat) Today R80.9 - Proteinuria, unspecified Vitamin B12 and Folate Today E53.8 - Deficiency of other specified B group vitamins Vitamin D 25-OH Total Today E55.9 - Vitamin D deficiency, unspecified Referrals Pain Management Referral M79.607 - Pain in left leg
[2024-11-10 10:28] VITALS: BP 116/70; PULSE 93; RESP 18; TEMP 36.2; O2SAT 96; BMI 20.1
== END 2024-11-10 11:08 | disposition home or self-care (01) ==
LOC: HO.HMCH 10:21
PROVIDERS: PCP Internal Medicine; Visit Provider Internal Medicine
DX: I10 Essential (primary) hypertension (principal); E78.5 Hyperlipidemia, unspecified; E11.65 Type 2 diabetes mellitus with hyperglycemia; M54.50 Low back pain, unspecified; M79.605 Pain in left leg

== ENCOUNTER 2024-11-10 10:20 | Outpatient (REF) | payer OTHER, SELFPAY ==
--- NOTE | ~2024-11-10 | XR_ITS ---
EXAMINATION: XR LUMBOSACRAL SPINE CLINICAL INFORMATION: M54.50 - Low back pain, unspecified COMPARISON: None available. TECHNIQUE: Three views of the lumbosacral spine. FINDINGS: There is a phlebolith in the right lower pelvis. Bowel gas pattern is unremarkable. There are 5 non-rib bearing lumbar segments. Vertebral body height is preserved. T12-L1: There is minimal disc space narrowing. L1-L2: There is minimal disc space narrowing. L2-L3: There is subtle retrolisthesis and mild disc space narrowing with anterior osteophytes. L3-L4: There is mild disc space narrowing with small anterior osteophytes. L4-L5: There is mild grade 1 retrolisthesis and small anterior osteophytes. L5-S1: There is mild disc space narrowing and small anterior osteophytes. XR/XR lumbar spine 2-3V IMPRESSION: Mild multilevel degenerative changes. Electronically signed by: Corby Hines MD 11/10/2024 12:11 PM EDT
== END 2024-11-10 10:21 | disposition home or self-care (01) ==
LOC: HO.XRAY 10:20
PROVIDERS: PCP Internal Medicine; Visit Provider Internal Medicine
DX: E11.65 Type 2 diabetes mellitus with hyperglycemia (principal); I10 Essential (primary) hypertension; E78.5 Hyperlipidemia, unspecified; M54.50 Low back pain, unspecified; M79.605 Pain in left leg; M16.12 Unilateral primary osteoarthritis, left hip
CPT/HCPCS: 72100; 99212

== ENCOUNTER → 2024-11-10 11:18 | Outpatient (BNV) | payer OTHER, SELFPAY | PROVIDERS: PCP Internal Medicine; Visit Provider Radiology Diagnostic Radiology | DX: M51.360 Other intervertebral disc degeneration, lumbar region with discogenic back pain only (principal); M25.78 Osteophyte, vertebrae | CPT/HCPCS: 72100 ==

== ENCOUNTER 2024-11-15 12:38 | Outpatient (REF) | payer OTHER, SELFPAY ==
--- NOTE | ~2024-11-15 | US_ITS ---
EXAMINATION: US TRIPLEX LOWER EXTREMITY, LEFT CLINICAL INFORMATION: Left leg pain, rule out DVT. COMPARISON: None available. TECHNIQUE: Color-flow triplex imaging with spectral analysis and compression Doppler were performed on the left lower extremity. FINDINGS: Respiratory variation, normal compression and augmented flow are noted throughout the left lower extremity. The visualized common femoral vein, superficial femoral vein, profunda femoral vein, popliteal vein and midcalf posterior tibial venous segments show no evidence of deep venous thrombosis. The peroneal veins were poorly visualized on today's exam. There is no Herring's cyst. US/US venous duplex LE LT IMPRESSION: No evidence of deep venous thrombosis involving the left lower extremity. Electronically signed by: Refugio Chacon MD 11/15/2024 01:27 PM EDT
== END 2024-11-15 12:39 | disposition home or self-care (01) ==
LOC: HO.US 12:38
PROVIDERS: PCP Internal Medicine; Visit Provider Internal Medicine
DX: M79.605 Pain in left leg (principal)
CPT/HCPCS: 93971

== ENCOUNTER → 2024-11-15 12:40 | Outpatient (BNV) | payer OTHER, SELFPAY | PROVIDERS: PCP Internal Medicine; Visit Provider Radiology Diagnostic Radiology | DX: M79.605 Pain in left leg (principal) | CPT/HCPCS: 93971 ==

== ENCOUNTER 2024-12-04 09:12 | Outpatient (REF) | payer OTHER, SELFPAY ==
--- NOTE | ~2024-12-04 | CT_ITS ---
CLINICAL HISTORY: S76.319A - Strain of muscle, fascia and tendon of the posterior muscle g... CT left thigh without contrast Comparison: None provided Findings: No acute fracture or dislocation. No focal bony abnormality. No radiopaque foreign body. Muscular injuries are not excludable on CT. Impression: No acute bony abnormality This document has been electronically signed by: Jorge Pinzon MD on 12/06/2024 20:25:57
== END 2024-12-04 09:13 | disposition home or self-care (01) ==
LOC: HO.CT 09:12
PROVIDERS: PCP Internal Medicine; Visit Provider Internal Medicine
DX: S76.312D Strain of muscle, fascia and tendon of the posterior muscle group at thigh level, left thigh, subsequent encounter (principal)
CPT/HCPCS: 73700

== ENCOUNTER → 2024-12-04 09:15 | Outpatient (BNV) | payer OTHER, SELFPAY | PROVIDERS: PCP Internal Medicine; Visit Provider Radiology Diagnostic Radiology | DX: S76.312D Strain of muscle, fascia and tendon of the posterior muscle group at thigh level, left thigh, subsequent encounter (principal) | CPT/HCPCS: 73700 ==

== ENCOUNTER 2024-12-07 10:13 | Outpatient (AMB) | payer OTHER, SELFPAY ==
--- NOTE | 2024-12-07 10:20 | A.OFFVIS_ITS ---
Vital Signs 12/07/24 10:22 Height 6 ft Weight 152 lb 8 oz BMI 20.7 BP 121/71 Blood Pressure Location Rt brachial Position Sitting Pulse 81 Pulse Source Pulse Oximeter Pulse Oximetry (%) 99 Oxygen Delivery Method Room Air Intake Visit Reasons: Pain In Left Leg Intake Note: Pain today 8/10 Allergies No Known Allergies Allergy (Verified 12/07/24 10:22) HPI Comments Details: The patient is a 59-year-old male presenting with acute left leg pain. The pain in the left posterior thigh and calf has been present for about one month, with a severity of 9 out of 10, and it affects his daily activities, mobility, and functioning. The pain is described as stabbing and pulsating, and it worsens at night. The patient has a history of back pain and type 2 diabetes mellitus, which is currently uncontrolled with most recent A1c of 11.9. He has not undergone physical therapy for his back or leg pain, and his diabetes management is crucial for further interventions. Recent imaging includes a femur x-ray that was unremarkable, but bone spurs were noted in the left hip and patella. A back x-ray showed mild multilevel degenerative changes, and a venous duplex of the left lower extremity was negative for deep vein thrombosis. - Onset: Pain in the left calf started one month ago. - Quality: Described as stabbing and pulsating. - Severity: Rated 9 out of 10. - Exacerbating factors: Pain worsens at night. - Impact: Affects daily activities, sleep, mobility, and functioning. - Affect: Pain impacts daily activities and functioning. - Analgesia: Current pain level is 9/10; tried Tylenol, diclofenac gel, and ibuprofen with little relief. - Activities of Daily Living: Pain affects sleep, mobility and daily functioning. 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 Vitamin D deficiency Diabetes type 2, controlled Surgical History Hx of colonoscopy Family History Father Hypertension Diabetes Mother Diabetes Social History Housing: House Alcohol intake: current Alcohol intake frequency: holidays/special occasions only Alcohol type: beer Patient Tobacco Use Status: Never used Tobacco e-Cigarette/Vaping Use: Never Used Second Hand Smoke Exposure: No service: No Current occupational status: employed Current occupational exposures/hazards: No Cognitive needs: No Hearing needs: No Vision needs: Yes Review of Systems Const Details: - Musculoskeletal: Reports left leg pain and back pain. Denies right leg pain. - Endocrine: Reports uncontrolled diabetes with A1c of 11.9. All systems reviewed & are unremarkable except as noted in HPI and below Physical Exam Vital Signs: Last Vital Signs Pulse 81 12/07/24 10:22 BP 121/71 12/07/24 10:22 Pulse Ox 99 12/07/24 10:22 Oxygen Delivery Method Room Air 12/07/24 10:22 BMI result Body Mass Index 20.7 General: Appears afebrile. Alert and oriented. Mood and affect appropriate. Follows and participates in conversation appropriately. Respiratory effort is unlabored. No cough. Able to transition from sit to stand unassisted. Ambulates with bilaterally normal heel strike and toe off. Mildly antalgic on th e left. General: Yes no CVA tenderness Back/Spine/Pelvis Other: Patient is able to walk and stand on heels and tip toes with no difficulties demonstrating good motor tone. No limping. Lumbar extension reproduces mild to moderate pain, flexion and bending reproduces mild pain. Demonstrates 5/5 strength of quadriceps bilaterally as well as flexion/dorsiflexion of bilateral feet against resistance. 2+ pedal pulses bilaterally. Straight leg rise with dorsiflexion negative bilaterally. +1 patellar and diminished achilles reflexes bilaterally. Facet loading test positive bilaterally. Norberto?s, and Gaenslen reproduce left lateral hip pain but not back pain. Stinchfield tests are negative bilaterally. Mild groin pain with I/E hip rotations bilaterally, left>right. Valsalva maneuver negative. Back: no CVA tenderness Cervical Spine: cervical ROM normal and No Cervical spine tenderness Thoracic/Lumbar Spine: thoracic and lumbar spine normal to inspection, No Thoracic/lumbar spine scar(s), Lasegue's sign negative, straight leg raise negative bilaterally, pain with thoraco-lumbar ROM, No thoracic spinal tenderness and No lumbar spinal tenderness Sacroiliac joints: bilaterally nontender Extrem General: Yes capillary refill normal, Yes no clubbing, cyanosis or edema and Yes no calf tenderness Left lower extremity: lower leg Details: normal to inspection, tenderness Location: of the posterior calf and no edema; no erythema, no localized swelling, no lacerations, no ecchymosis, no crepitus and no unusual warmth Results Reviewed Results Reviewed: XR HIP, LEFT 12/07/24 CLINICAL INFORMATION: M25.552 - Pain in left hip COMPARISON: Correlated to CT femur December 04, 2024. TECHNIQUE: AP and oblique views of the left hip. AP view pelvis. FINDINGS: No acute cortical disruption or malalignment. No lytic or blastic lesions. Sclerosis along the posterior surface of the left acetabulum. Bony pelvis intact. No subcutaneous emphysema. No gross vascular calcifications. IMPRESSION: Mild osteoarthrosis/osteoarthritis, left hip. CT femur LT wo IV con 12/04/24 FINDINGS: No acute fracture or dislocation. No focal bony abnormality. No radiopaque foreign body. Muscular injuries are not excludable on CT. IMPRESSION: No acute bony abnormality US venous duplex LE LT 11/15/24 IMPRESSION: No evidence of deep venous thrombosis involving the left lower extremity. XR LUMBOSACRAL SPINE 11/10/24 CLINICAL INFORMATION: M54.50 - Low back pain, unspecified COMPARISON: None available. TECHNIQUE: Three views of the lumbosacral spine. FINDINGS: There is a phlebolith in the right lower pelvis. Bowel gas pattern is unremarkable. There are 5 non-rib bearing lumbar segments. Vertebral body height is preserved. T12-L1: There is minimal disc space narrowing. L1-L2: There is minimal disc space narrowing. L2-L3: There is subtle retrolisthesis and mild disc space narrowing with anterior osteophytes. L3-L4: There is mild disc space narrowing with small anterior osteophytes. L4-L5: There is mild grade 1 retrolisthesis and small anterior osteophytes. L5-S1: There is mild disc space narrowing and small anterior osteophytes. IMPRESSION: Mild multilevel degenerative changes. XR FEMUR, LEFT 11/02/24 FINDINGS: Marginal osteophytes are present along the acetabular roof. The left hip joint is otherwise unremarkable. The left knee joint is grossly normal. No femoral abnormality is identified. There are large patellar enthesophytes. IMPRESSION: Unremarkable left femur. There are large patellar enthesophytes of uncertain significance. There are osteophytes involving the acetabular roof in the left hip. Assessment & Plan Assessment & Plan (1) Lumbar pain: Code(s): M54.50 - Low back pain, unspecified Category: Medical (2) Hamstring muscle strain: Code(s): S76.319A - Strain of muscle, fascia and tendon of the posterior muscle group at thigh level, unspecified thigh, initial encounter Category: Medical (3) Left hip pain: Code(s): M25.552 - Pain in left hip Category: Medical (4) Lumbar radiculopathy: Code(s): M54.16 - Radiculopathy, lumbar region Category: Medical Plan The plan includes initiating physical therapy to address the left leg and back pain, as the patient has not yet undergone this treatment modality. If physical therapy does not alleviate the symptoms, an MRI of the back will be considered to further evaluate the cause of the pain. Additionally, the patient is advised to manage his diabetes more effectively, as a lower A1c is necessary before considering steroid injections for hip arthritis. All questions and concerns have been answered and patient agreed with the treatment plan. Follow up after PT and sooner as needed. Patient was informed and verbally consented to the use of an ambient scribe for clinic note documentation during this visit. Orders: Orders XR hip LT w PEL1V Today M25.552 - Pain in left hip PT Evaluation and Treatment Today M25.552 - Pain in left hip, M54.16 - Radiculopathy, lumbar region, M54.50 - Low back pain, unspecified, S76.319A - Strain of muscle, fascia and tendon of the posterior muscle group at thigh level, unspecified thigh, initial encounter Coding Level of Care Code New Pt Level 4 (05922) Diagnoses Lumbar pain M54.50 Hamstring muscle strain S76.319A Left hip pain M25.552 Lumbar radiculopathy M54.16
[2024-12-07 10:22] VITALS: BP 121/71; PULSE 81; O2SAT 99; BMI 20.7
== END 2024-12-07 10:40 | disposition home or self-care (01) ==
LOC: HO.PMC 10:14
PROVIDERS: PCP Internal Medicine; Referring Provider Internal Medicine; Visit Provider Nurse Practitioner Family
DX: M54.50 Low back pain, unspecified (principal); S76.319A Strain of muscle, fascia and tendon of the posterior muscle group at thigh level, unspecified thigh, initial encounter; M25.552 Pain in left hip; M54.16 Radiculopathy, lumbar region
CPT/HCPCS: 99204

== ENCOUNTER 2024-12-07 10:13 | Outpatient (REF) | payer OTHER, SELFPAY ==
--- NOTE | ~2024-12-07 | XR_ITS ---
EXAMINATION: XR HIP, LEFT CLINICAL INFORMATION: M25.552 - Pain in left hip COMPARISON: Correlated to CT femur December 04, 2024. TECHNIQUE: AP and oblique views of the left hip. AP view pelvis. FINDINGS: No acute cortical disruption or malalignment. No lytic or blastic lesions. Sclerosis along the posterior surface of the left acetabulum. Bony pelvis intact. No subcutaneous emphysema. No gross vascular calcifications. XR/XR hip LT w PEL1V IMPRESSION: Mild osteoarthrosis/osteoarthritis, left hip. Electronically signed by: Geovanni Millan MD 12/07/2024 11:06 AM EDT
== END 2024-12-07 10:14 | disposition home or self-care (01) ==
LOC: HO.XRAY 10:13
PROVIDERS: PCP Internal Medicine; Referring Provider Internal Medicine; Visit Provider Nurse Practitioner Family
DX: S76.312A Strain of muscle, fascia and tendon of the posterior muscle group at thigh level, left thigh, initial encounter (principal); M54.50 Low back pain, unspecified; M25.552 Pain in left hip; M54.16 Radiculopathy, lumbar region; X58.XXXA Exposure to other specified factors, initial encounter
CPT/HCPCS: 73502; 99202

== ENCOUNTER → 2024-12-07 10:45 | Outpatient (BNV) | payer OTHER, SELFPAY | PROVIDERS: PCP Internal Medicine; Referring Provider Internal Medicine; Visit Provider Radiology Diagnostic Radiology | DX: M16.12 Unilateral primary osteoarthritis, left hip (principal) | CPT/HCPCS: 73502 ==

== ENCOUNTER 2025-01-11 09:42 | Outpatient (REF) | payer OTHER, SELFPAY | END 2025-01-11 09:43 | disposition home or self-care (01) | LOC: HO.LAB 09:42 | PROVIDERS: PCP Internal Medicine; Visit Provider Internal Medicine Endocrinology, Diabetes & Metabolism | DX: E11.65 Type 2 diabetes mellitus with hyperglycemia (principal); Z79.4 Long term (current) use of insulin; Z79.84 Long term (current) use of oral hypoglycemic drugs | CPT/HCPCS: 36415; 82947; 86341; 99211; 99212 ==

== ENCOUNTER 2025-01-11 09:42 | Outpatient (AMB) | payer OTHER, SELFPAY ==
--- NOTE | 2025-01-11 09:47 | A.OFFVIS_ITS ---
Vital Signs 01/11/25 09:48 Height 6 ft Weight 154 lb 5.177 oz BMI 20.9 BP 116/78 Blood Pressure Location Rt brachial Position Sitting Pulse 105 H Pulse Source Pulse Oximeter Pulse Oximetry (%) 97 Oxygen Delivery Method Room Air Intake Visit Reasons: Type 2 diabetes mellitus without complications Intake Note: New patient internally referred by PCP for T2DM management. Last Diabetic Eye exam: Within the year, due next year. Last Podiatry Visit: Patient does not see a Back Tender Fourdrinier Random Glucose: 167 mg/dL Hgb A1C: 11.9% 11/02/2024 Income Tax Administrator Required: Yes Income Tax Administrator Language: [employer]: Income Tax Administrator Present Income Tax Administrator Name: Hina #[id number] Accompanied by: Self / Same As Patient Allergies No Known Allergies Allergy (Verified 01/11/25 09:53) Medication List - Last Reconciled 01/11/25 by Timmy Alan MD acetaminophen (Tylenol Extra Strength) 500 mg PO Q6H PRN blood sugar diagnostic As directed blood sugar diagnostic (OneTouch Verio test strips) As directed twice a day, fasting am and at bedtime blood-glucose meter As directed twice aday diclofenac sodium 1% (Voltaren Arthritis Pain) 2 grams topical QID PRN empagliflozin (Jardiance) 25 mg PO DAILY 90 days lancets (OneTouch Delica Lancets) 4 times a day lancets As directed twice a day Lantus Solostar U-100 Insulin (insulin glargine) 28 units (0.28 mL) subcut BEDTIME 30 days NS lisinopril 2.5 mg PO DAILY 90 days metformin ER 1,000 mg (2 x 500 mg) PO BID 90 days pen needle, diabetic (1st Tier Unifine Pentips) Use 1 pen needle once a day pravastatin 20 mg PO BEDTIME 90 days HPI Comments Details: Patient is 59-year-old male with DM type 2 diagnosed in 2011 who presents for management of diabetes. Patient was last seen by Leny Loya NP on 05/18/21 Past medical history: Diabetes type 2, dyslipidemia, vitamin-D deficiency Micro and macrovascular complications: Nephropathy (positive microalbumin and 2014 in 2015 now back to normal) Diabetes medications: Lantus 28 units, metformin 500 mg BID , Jardiance 25 mg daily Family hx of Type 2 DM in mother Symptoms reported: denies numbness, tingling, cramping in lower extremities Hypoglycemia: denies Hyperglycemia: + urinary frequency (drinks a lot) , denies nocturia, denies polydypsia Blood glucose monitoring: no meter today. Reports no meter today and has not been checking. Mgmt Specialist - CDE education: awhile ago Back Tender Fourdrinier: denies Ophthalmology evaluation: last appt last yr . , has appt in 02/2025 Laboratory Tests 11/24/20 13:30 Hgb A1c (Clinic) 8.9 H 08/10/20 11/10/20 11/10/20 13:32 09:13 09:13 Creatinine 0.94 Estimated GFR > 60 Hgb A1c (Clinic) 9.8 H Triglycerides 68 Cholesterol 147 LDL Cholesterol Direct 78 LDL Cholesterol, Calc 78 HDL Cholesterol 56 Microalb/Creat Ratio 11/10/20 09:15 Creatinine Estimated GFR Hgb A1c (Clinic) Triglycerides Cholesterol LDL Cholesterol Direct LDL Cholesterol, Calc HDL Cholesterol Microalb/Creat Ratio 17.1 PFSH Medical History Lumbar pain Essential hypertension Hypovitaminosis D Diabetes mellitus type 2 in nonobese Diabetes type 2, uncontrolled Diabetic nephropathy associated with type 2 diabetes mellitus 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 Vitamin D deficiency Diabetes type 2, controlled Surgical History Hx of colonoscopy Family History Father Hypertension Diabetes Mother Diabetes Social History Housing: House Alcohol intake: current Alcohol intake frequency: holidays/special occasions only Alcohol type: beer Patient Tobacco Use Status: Never used Tobacco e-Cigarette/Vaping Use: Never Used Second Hand Smoke Exposure: No service: No Current occupational status: employed Current occupational exposures/hazards: No Cognitive needs: No Hearing needs: No Vision needs: Yes Physical Exam Vital Signs: Last Vital Signs Pulse 105 H 01/11/25 09:48 BP 116/78 01/11/25 09:48 Pulse Ox 97 01/11/25 09:48 Oxygen Delivery Method Room Air 01/11/25 09:48 BMI result Body Mass Index 20.9 Absence of Cushingoid features. Absence of acromegalic features. Neck exam reveals nl size thyroid about 15 gms. No thyroid nodules palpable. No carotid bruits present. Lungs CTA. Heart S1 S2, Reg R/R. No M/R/ G. Skin exam reveals absence of vitiligo or acanthosis nigricans. Abdominal exam reveals Soft NT/ND with NA BS. No organomegaly present. Neck Other: . Extrem Other: Visual exam of foot performed. No ulcerations or open lesions. No onchomycosis, no callouses.Pulses 2 + distally Sensation intact to monofilament exam. Vibratory sensation sensed is intact with 128 Hz tuning fork Results Reviewed Results Reviewed: Laboratory Last Values Glucose (Clinic) 167 mg/dL (60-115) H 01/11/25 09:52 Assessment & Plan Assessment & Plan (1) Diabetes type 2, uncontrolled: Code(s): E11.65 - Type 2 diabetes mellitus with hyperglycemia Category: Medical Qualifiers: Glycemic state: with hyperglycemia Qualified Code(s): E11.65 - Type 2 diabetes mellitus with hyperglycemia Plan: This is a 59-year-old male with a history of type 2 diabetes being treated with metformin, Jardiance and basal insulin with poor glycemic control and no known microvascular or microvascular complications The plan is to talk to the patient about initiating a send certain namely Dexcom G7 There was no data today to make any changes in the regimen. Will have patient check lipid profile and microalbumin to creatinine ratio as requested by primary care provider. Will also check anti-chinyere 65 antibodies to rule out type 1. Went over extensively the relationship of poor glycemic control to development and progression of complications. I also set up an appointment with the special education paraeducator and putty and caulking supervisor. He will meet with a special education paraeducator today to initiate the Dexccom G7 sensory Orders: Orders Glutamic acid decarboxylase Ab Today E11.65 - Type 2 diabetes mellitus with hyperglycemia Referrals Nutrition/Dietitian Referral E11.65 - Type 2 diabetes mellitus with hyperglycemia Diabetes Education Referral E11.65 - Type 2 diabetes mellitus with hyperglycemia Medications: New Dexcom G7 Sensor (blood-glucose sensor) As directed change every 10 days 3 ea 5RF NS Coding Level of Care Code Est Pt Level 4 (46090) Diagnoses Uncontrolled type 2 diabetes mellitus with hyperglycemia E11.65 Glycemic state: with hyperglycemia
[2025-01-11 09:48] VITALS: BP 116/78; PULSE 105; O2SAT 97; BMI 20.9
[2025-01-11 09:59] LABS: Glucose, Whole Blood 167 mg/dL (60-115)
== END 2025-01-11 10:28 | disposition home or self-care (01) ==
LOC: HO.ENCR 09:43
PROVIDERS: PCP Internal Medicine; Visit Provider Internal Medicine Endocrinology, Diabetes & Metabolism
DX: E11.65 Type 2 diabetes mellitus with hyperglycemia (principal)
CPT/HCPCS: 99214

== ENCOUNTER 2025-01-11 10:30 | Outpatient (AMB) | payer OTHER, SELFPAY ==
--- NOTE | 2025-01-11 10:44 | MHC.AMDMED ---
Intake Intake Visit Reasons: Type 2 diabetes mellitus without complications Mine Safety Manager Required: Yes Mine Safety Manager Language: Tractor Sweeper Operator Name: Yana [facility] Accompanied by: Self / Same As Patient Allergies No Known Allergies Allergy (Verified 01/11/25 09:53) PFSH Medical History Lumbar pain Essential hypertension Hypovitaminosis D Diabetes mellitus type 2 in nonobese Diabetes type 2, uncontrolled Diabetic nephropathy associated with type 2 diabetes mellitus Dyslipidemia halfway (current) use of insulin Vitamin D deficiency Diabetes type 2, controlled Surgical History Hx of colonoscopy Family History Father Hypertension Diabetes Mother Diabetes Social History Housing: House Alcohol intake: current Alcohol intake frequency: holidays/special occasions only Alcohol type: beer Patient Tobacco Use Status: Never used Tobacco e-Cigarette/Vaping Use: Never Used Second Hand Smoke Exposure: No service: No Current occupational status: employed Current occupational exposures/hazards: No Cognitive needs: No Hearing needs: No Vision needs: Yes Assessment & Plan Assessment & Plan (1) Diabetes type 2, controlled: Code(s): E11.9 - Type 2 diabetes mellitus without complications Plan: Patient at visit to set up an insert Dexcom G7 with [place] Instructed Pt on what CGM can and can't do CGM Can: Give Pt minute by minute reading of glucose levels Displays glucose trend arrows that represents the direction glucose levels are fluctuating Give insight on decisions about how to dose insulin CGM cannot: Improve glucose control on its own Completely eliminate the need for all finger sticks Make dosing decision for you CGM is the reading of glucose in the interstitial fluid not actual blood glucose, finger sticks are still necessary when Pt's symptom?s do not match sensor reading and if sensors prompts Pt to do a fingerstick Instructed patient sensors water proof you can shower, or swim do not submerge sensor in water for over 30 minutes Is sensor falls off cannot put back in you need to replace sensor, customer service number given to patient for sensor replacement Sensor placed on the back of right arm Patient left visit with sensor in warmup Reviewed how to interpret trend arrows Discussed lag time between finger stick and sensor data.? Instructed patient the importance of having blood glucometer for backup testing if needed Reviewed delay of CGM from fingersticks Reminded Pt that if symptoms do not match sensor still needs to check fingersticks. Portions of this note were created using voice recognition software, please excuse any words or phrases that may have been misinterpreted. Patient Instructions: Instrucciones para el paciente: CGM proporciona informaci?n sobre el control de la glucosa en delilah a lo willian del d?a, incluidas la hiperglucemia y la hipoglucemia. Contin?e controlando la glucosa en delilah seg?n las instrucciones. Siga las pautas de nutrici?n proporcionadas. Informe cualquier molestia de inmediato al proveedor de atenci?n m?dica. Mantente sandy hidratado. Puede ba?arse, ducharse, nadar y hacer ejercicio mientras usa el sensor de glucosa. No sumerja el sensor de glucosa en agua lizbeth m?s de 30 minutos. Retire el sensor para marta resonancia magn?mahad o marta tomograf?a computarizada. Evite la m?quina de perri X en los aeropuertos: retire el sensor o solicite la varita Coding Level of Care Code Est Pt Level 1 (59891) Diagnoses Diabetes type 2, controlled E11.9
== END 2025-01-11 10:45 | disposition home or self-care (01) ==
LOC: HO.ENCR 10:31
PROVIDERS: PCP Internal Medicine; Visit Provider Registered Nurse Diabetes Educator
DX: E11.9 Type 2 diabetes mellitus without complications (principal)

== ENCOUNTER 2025-02-08 09:44 | Outpatient (AMB) | payer OTHER, SELFPAY ==
--- NOTE | 2025-02-08 10:16 | MHC.AMDMED ---
Intake Intake Visit Reasons: 60 min Scribing Machine Operator Required: Yes Scribing Machine Operator Language: Rn Recovery Name: [facility] [place] Accompanied by: Self / Same As Patient Allergies No Known Allergies Allergy (Verified 01/11/25 09:53) HPI Comprehensive Diabetes Asmnt Most Recent Diabetes Results: Microalb/Creat Ratio 16.7 ug/mg cr 10/06/21 Cholesterol 142 mg/dL 10/06/21 HDL Cholesterol 56 mg/dL 10/06/21 Triglycerides 76 mg/dL 10/06/21 Creatinine, (0.5-1.4) 0.91 mg/dL 10/06/21 BUN, (9-16) 15 mg/dL 10/06/21 Sodium, (135-145) 140 mmol/L 10/06/21 Potassium, (3.3-5.1) 4.4 mmol/L 10/06/21 Chloride, (96-108) 104 mmol/L 10/06/21 Carbon Dioxide, (22-29) 26 mmol/L 10/06/21 Calcium, (8.4-10.2) 9.5 mg/dL Δ 10/06/21 AST, (5-37) 19 U/L 10/06/21 ALT, (0-40) 26 U/L 10/06/21 Total Protein, (6.5-8.0) 7.5 g/dL 10/06/21 Albumin, (3.5-5.0) 4.4 g/dL 10/06/21 [facility] Medical History Lumbar pain Essential hypertension Hypovitaminosis D Diabetes mellitus type 2 in nonobese Diabetes type 2, uncontrolled Diabetic nephropathy associated with type 2 diabetes mellitus Dyslipidemia custodial (current) use of insulin Vitamin D deficiency Diabetes type 2, controlled Surgical History Hx of colonoscopy Family History Father Hypertension Diabetes Mother Diabetes Social History Housing: House Alcohol intake: current Alcohol intake frequency: holidays/special occasions only Alcohol type: beer Patient Tobacco Use Status: Never used Tobacco e-Cigarette/Vaping Use: Never Used Second Hand Smoke Exposure: No service: No Current occupational status: employed Current occupational exposures/hazards: No Cognitive needs: No Hearing needs: No Vision needs: Yes Assessment & Plan Assessment & Plan (1) Diabetes type 2, controlled: Code(s): E11.9 - Type 2 diabetes mellitus without complications Plan: Learning objectives: The patient was provided with verbal and written education on the following topics as outlined below. The patient met all learning objectives and was able to verbalize understanding and provide teach back of education topics discussed . The patient was provided with the opportunity to ask questions and all questions were answered. Patient Assessment Assess patient education level/literacy/barriers Last A1c on 11/02/24 11. 9% Patient or sample Dexcom G7 sensor given to him by Dr. Alan, patient is on basal insulin but appears patient's insurance requires 3 or more insulin injections daily to cover CGM. Will send request for glucometer and supplies to provider Patient is currently taking Lantus 28 units daily Jardiance 25 mg daily Patient denies missing medications Patient has follow-up appointment with Dr. Mathews on 02/09/2025 What is Diabetes? Pathophysiology How the body produces and uses insulin Identify type of DM Risk factors Signs of Diabetes Brief overview of Diabetes Management Monitoring blood sugar Following a meal plan Regular exercise Maintaining a healthy weight Taking medication as needed Members of the care team (PCP, RN, MA, RD, CDE, pouncer) Blood glucose monitoring When/how often to test Target blood sugar ranges Introduction to Nutrition Importance of healthy diet in managing DM Diet is personalized to individual preference Review patient?s regular diet/food preferences Who prepares meals/does food shopping/ Dining out?/ Barriers? How diet effects glucose Eating 3 balanced meals a day with small, healthy snacks between meals Review food groups Carbohydrates: What is a carbohydrate/Which food/food groups are considered carbohydrates Effect of carbohydrates on blood glucose Portion sizes Reading food labels Basic carb counting (if applicable per nursing assessment) Plate method Meal planning Recommendations: Follow plate method, consistent carbs and read nutritional labels. Smart Goal: Patient will identify foods in current meal plan that contain carbohydrates Educational Materials: The patient was provided with the following written educational materials: Planning Healthy Meals Handout Patient Response to instructions: Comprehension of Instructions: Fair Readiness to make changes: Contemplation How confident they feel about making changes: Fair Portions of this note were created using voice recognition software, please excuse any words or phrases that may have been misinterpreted. Patient Instructions: Incluir actividad diaria regular. ADA recomienda 30 minutos de ejercicio 5 d?as a la semana. P?rdida de peso, hable con el PCP o el cardi?logo antes de comenzar un nuevo plan. Mida el nivel de az?car en la delilah seg?n las indicaciones; Ayuno y comida m?s henna de 2hpp. Observe las tendencias en los resultados. Utilice los resultados y eval?e c?mo los alimentos, la actividad f?bailey y los medicamentos afectan los resultados de az?car en la delilah. Lleve el gluc?metro o CGM a la pr?xima visita. Conocer los medicamentos para la diabetes, villa acci?n, los efectos secundarios, la eficacia, la toxicidad, la dosis prescrita, el momento y la frecuencia de administraci?n apropiados, el efecto de las dosis olvidadas y retrasadas y las instrucciones de almacenamiento, viaje y seguridad. T?cnicas de resoluci?n de problemas para el seguimiento de episodios de hipo/hiperglucemia y tratamientos. Reducir los comportamientos de reducci?n de riesgos, dejar de fumar, ex?menes regulares de ojos, pies y dentales. Coding Level of Care Code G0108 Diab Man Trn Indiv 30min Diagnoses Diabetes type 2, controlled E11.9
== END 2025-02-08 10:00 | disposition home or self-care (01) ==
LOC: HO.ENCR 09:45
PROVIDERS: PCP Internal Medicine; Visit Provider Registered Nurse Diabetes Educator
DX: E11.9 Type 2 diabetes mellitus without complications (principal)

== ENCOUNTER → 2025-02-08 09:44 | Outpatient (BNVA) | payer OTHER, SELFPAY | PROVIDERS: PCP Internal Medicine; Visit Provider Registered Nurse Diabetes Educator | DX: E11.9 Type 2 diabetes mellitus without complications (principal); Z79.4 Long term (current) use of insulin; Z79.84 Long term (current) use of oral hypoglycemic drugs | CPT/HCPCS: G0108 ==

== ENCOUNTER 2025-02-09 10:42 | Outpatient (AMB) | payer OTHER, SELFPAY ==
--- NOTE | 2025-02-09 10:45 | A.OFFVIS_ITS ---
Vital Signs 02/09/25 10:48 Height 6 ft Weight 147 lb 11.355 oz BMI 20.0 BP 110/76 Blood Pressure Location Rt brachial Position Sitting Pulse 103 H Pulse Source Pulse Oximeter Pulse Oximetry (%) 97 Oxygen Delivery Method Room Air Intake Visit Reasons: Type 2 diabetes mellitus without complications Intake Note: Patient presents today for a follow-up on Type 2 Diabetes Mellitus: Last Diabetic eye exam was on: Patient stated within the year, due next year 2025. Last Podiatry exam was on: Patient does not see a Printing Table Hand Most recent HbA1c: 11.2%, 02/09/2025 Random Glucose: 256 mg/dL Life Sciences Manager Required: Yes Life Sciences Manager Language: Plate Preparer Services: Life Sciences Manager Present Life Sciences Manager Name: AGUILAR Reyes/FABY Jean Baptiste Information Interpreted: non-clinical & clinical Accompanied by: Self / Same As Patient Allergies No Known Allergies Allergy (Verified 02/09/25 10:50) HPI Comments Details: Patient is 59-year-old male with DM type 2 diagnosed in 2011 who presents for management of diabetes. Past medical history: Diabetes type 2, dyslipidemia, vitamin-D deficiency Current medications Lantus 28 units Metformin 1000mg BID Jardiance 25 mg daily Reports compliance A1C today 11.2% from 11.9% from 14%. 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 HEENT: Denies changes in vision and hearing. RESPIRATORY: Denies SOB and cough. CV: Denies palpitations and CP GI: Denies abdominal pain, nausea, vomiting and diarrhea. : Denies dysuria and urinary frequency. MSK: Denies new myalgia and joint pain. SKIN: Denies rash and pruritus. NEUROLOGICAL: Denies headache PSYCHIATRIC: Denies recent changes in mood. PHYSICAL EXAM: GENERAL: Alert and oriented x 3. NAD EYES: EOMI. Anicteric. HENT: Moist mucous membranes. No scleral icterus. No cervical lymphadenopathy. LUNGS: Clear to auscultation bilaterally. CARDIOVASCULAR: Regular rate and rhythm. No murmur. No JVD. ABDOMEN: Soft, non-tender +bs EXTREMITIES: No edema. Non-tender. SKIN: No rashes or lesions. Warm. NEUROLOGIC: No focal neurological deficits. CN II-XII grossly intact PSYCHIATRIC: Cooperative. 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 Vitamin D deficiency Diabetes type 2, controlled Surgical History Hx of colonoscopy Family History Father Hypertension Diabetes Mother Diabetes Social History Housing: House Alcohol intake: current Alcohol intake frequency: holidays/special occasions only Alcohol type: beer Patient Tobacco Use Status: Never used Tobacco e-Cigarette/Vaping Use: Never Used Second Hand Smoke Exposure: No service: No Current occupational status: employed Current occupational exposures/hazards: No Cognitive needs: No Hearing needs: No Vision needs: Yes Physical Exam Vital Signs: Last Vital Signs Pulse 103 H 02/09/25 10:48 BP 110/76 02/09/25 10:48 Pulse Ox 97 02/09/25 10:48 Oxygen Delivery Method Room Air 02/09/25 10:48 BMI result Body Mass Index 20.0 Results AMB Hemoglobin A1c AMB Hemoglobin A1c 11.2 % Last Edit by AGUILAR Reyes on 02/09/25 11:0 8 Results Reviewed Results Reviewed: Laboratory Last Values Glucose (Clinic) 256 mg/dL (60-115) H 02/09/25 11:01 Assessment & Plan Assessment & Plan (1) Diabetes type 2, uncontrolled: Code(s): E11.65 - Type 2 diabetes mellitus with hyperglycemia Category: Medical Qualifiers: Glycemic state: with hyperglycemia Qualified Code(s): E11.65 - Type 2 diabetes mellitus with hyperglycemia (2) senior living (current) use of insulin: Code(s): Z79.4 - 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 No hypoglycemia. 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 FreeStyle Michelle 3 Plus Sensor (blood-glucose sensor) every 15 days 6 ea 3RF NS E11.9 - Type 2 diabetes mellitus without complications, Z79.4 - senior living (current) use of insulin Changed From Lantus Solostar U-100 Insulin (insulin glargine) 28 units (0.28 mL) subcut BEDTIME 30 days 8.4 mL 8RF NS E11.65 - Type 2 diabetes mellitus with hyperglycemia To Lantus Solostar U-100 Insulin (insulin glargine) 40 units (0.4 mL) subcut BEDTIME 36 mL 8RF 90 days NS E11.65 - Type 2 diabetes mellitus with hyperglycemia Coding Level of Care Code Est Pt Level 4 (06883) Diagnoses Uncontrolled type 2 diabetes mellitus with hyperglycemia E11.65 Glycemic state: with hyperglycemia 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
[2025-02-09 10:48] VITALS: BP 110/76; PULSE 103; O2SAT 97
[2025-02-09 11:04] LABS: Glucose, Whole Blood 256 mg/dL (60-115)
== END 2025-02-09 11:21 | disposition home or self-care (01) ==
LOC: HO.ENCR 10:42
PROVIDERS: PCP Internal Medicine; Visit Provider Internal Medicine
DX: E11.65 Type 2 diabetes mellitus with hyperglycemia (principal); Z79.4 Long term (current) use of insulin; E11.9 Type 2 diabetes mellitus without complications

== ENCOUNTER → 2025-02-09 10:42 | Outpatient (BNVA) | payer OTHER, SELFPAY | PROVIDERS: PCP Internal Medicine; Visit Provider Internal Medicine | DX: E11.65 Type 2 diabetes mellitus with hyperglycemia (principal); Z79.4 Long term (current) use of insulin; Z79.84 Long term (current) use of oral hypoglycemic drugs | CPT/HCPCS: 82947; 83036; 99212 ==